=== PATIENT | male | born 1940 | race Caucasian/White ===

== ENCOUNTER → 2016-10-08 | Outpatient (CLI) | payer MEDICARE, BC ==
[~2016-10-08] MED LIST: ACETAMINOPHEN PO; ADVAIR 250-501 EACH IH; ADVAIR 2501 DISK W/D PO; ANEXSIA 5/325 M1 TA1 PO; ASPERDRINK81 MG PO; ASPIRIN PO; ASPIRIN81 M1 PO; AUGMENTIN875 MG PO; CARVEDILOL3.125 MG PO; CITRACAL + D CA1 TA1 PO; CITRACAL PLUS T1 TAB PO; CITRACAL PLUS1 EACH PO; COLACE PO; COREG PO; COREG3.125 MG PO; COREG6.25 MG PO; COUMADIN7.5 MG PO; CRESTOR PO; CRESTOR10 MG PO; DOXYCYCLINE PO; HYDROCODON-ACE1 EAC7 PO; HYDROCODONE-APA1 T30; HYDROCODONE-APA1 T55 PO; LANTUS100 U/ML; LANTUS100 U/ML SUBQ; LASIX20 MG PO; LISINOPRIL PO; LISINOPRIL10 MG PO; LISINOPRIL20 MG PO; MOBIC; MULTI-VITAMIN1 EAC1 PO; MULTI-VITAMIN1 TAB PO; MULTIVITAMIN1 UDCAP PO; NICOTINE T1 PATCH .2 TOP; NORVASC PO; NOVOLIN R100 U/ML; NOVOLOG100 U/ML SUBQ; PATIENT'S PHARMACY; PLAVIX PO; PREDNISONE PO; PROAIR; PROAIR HFA8.5 GM IH; PROAIR HFA8.5 GM INH; PROAIR INH; TYLENOL325 M1 PO; WARFARIN SODIU7.5 MG PO; ZITHROMAX PO
[2016-10-08 15:26] LABS: BUN/CREATININE RATIO 6.66; CALCIUM SERUM 9.5 mg/dL (8.4-10.2); CREATININE SERUM 0.9 mg/dL (0.6-1.4); GLOM FILT RATE Estimated 82.1 mL/min (>60); POTASSIUM 4.7 mmol/L (3.5-5.1)
== END | disposition home or self-care (01) ==
LOC: CLAB 12:59
PROVIDERS: Internal Medicine Interventional Cardiology
DX: I10 Essential (primary) hypertension (principal)
CPT/HCPCS: 36415; 80048